=== PATIENT | female | born 1970 | race American Indian/Alaskan Native ===

== ENCOUNTER 2017-07-26 22:06 | Emergency (ER) | payer MEDICAID ==
[2017-07-26 22:24] VITALS: BP 142/93
[2017-07-26] MEDS ORDERED: Ketorolac 30 MG/ML SDV IM ONE (22:50)
--- NOTE | 2017-07-26 22:58 | EDM.PDOC ---
ED HPI GENERAL MEDICAL PROBLEM - General Chief Complaint: Lower Extremity Injury/Pain Stated Complaint: L GROIN PAIN Time Seen by Provider: 07/26/17 22:35 Source of Information: Reports: Patient History Limitations: Reports: No Limitations - History of Present Illness INITIAL COMMENTS - FREE TEXT/NARRATIVE: 47 yo female visiting from [place] thinks she injured her L groin during a recent PT appt in [place]. Has not talked to her provider about this. Has tried acetaminophen for it without relief. Is not missing work, is unemployed. Staying with family locally for a couple days. 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: Acetaminophen Left Groin Pain Score (Numeric/FACES): 10 - Related Data Allergies Allergy/AdvReac Type Severity Reaction Status Date / Time ranitidine [From Zantac] Allergy Hives Verified 07/02/16 17:58 Home Meds: Home Meds Aspirin/Calcium Carbonate/Mag [Aspirin Buffered 325 mg Tab] 1 tab PO DAILY 07/02 [History] Chlorzoxazone 1 tab PO DAILY 07/02/16 [History] Clopidogrel [Plavix] 1 tab PO DAILY 07/02/16 [History] Cyclobenzaprine [Flexeril] 5 - 10 mg PO BEDTIME 07/02/16 [History] DULoxetine [Cymbalta] 1 tab PO BEDTIME 07/02/16 [History] DULoxetine [Cymbalta] 2 tab PO DAILY 07/02/16 [History] Ferrous Gluconate 1 tab PO TID 07/02/16 [History] Levothyroxine 1 tab PO DAILY 07/02/16 [History] Mirtazapine 7.5 mg PO BEDTIME 07/02/16 [History] Naproxen 1 tab PO BID 07/02/16 [History] Oxybutynin 1 tab PO TID 07/02/16 [History] Pantoprazole [ProTONIX] 1 tab PO DAILY 07/02/16 [History] atorvaSTATin [Lipitor] 1 tab PO DAILY 07/02/16 [History] buPROPion [Wellbutrin] 1 tab PO BID 07/02/16 [History] metFORMIN [Glucophage] 1 tab PO DAILY 07/02/16 [History] risperiDONE 0.5 tab PO DAILY 07/02/16 [History] Meloxicam [Mobic] 7.5 mg PO BID #14 tablet 07/26/17 [Rx] Past Medical History HEENT History: Reports: Impaired Vision Cardiovascular History: Reports: High Cholesterol, Hypertension Respiratory History: Reports: COPD Gastrointestinal History: Reports: GERD Genitourinary History: Reports: Urinary Incontinence Musculoskeletal History: Reports: Back Pain, Chronic Neurological History: Reports: Seizure Psychiatric History: Reports: Anxiety, Depression, Panic Attack, PTSD Endocrine/Metabolic History: Reports: Hypothyroidism Hematologic History: Reports: Anemia Dermatologic History: Reports: Eczema - Past Surgical History Female Surgical History: Reports: Tubal Ligation Endocrine Surgical History: Reports: Thyroidectomy Neurological Surgical History: Reports: Other (See Below) Social & Family History - Tobacco Use Smoking Status *Q: Current Every Day Smoker Years of Tobacco use: 30 Packs/Tins Daily: 0.5 - Caffeine Use Caffeine Use: Reports: Coffee, Soda - Recreational Drug Use Recreational Drug Use: Yes Recreational Drug Type: Reports: Marijuana/Hashish Review of Systems - Review of Systems Review Of Systems: See Below Constitutional: Reports: No Symptoms Respiratory: Reports: No Symptoms Cardiovascular: Reports: No Symptoms GI/Abdominal: Reports: No Symptoms Genitourinary: Reports: No Symptoms Musculoskeletal: Reports: Joint Pain (L anterior hip region tender with palpation.) Skin: Reports: No Symptoms Neurological: Reports: No Symptoms ED EXAM, GENERAL - Physical Exam Exam: See Below Exam Limited By: No Limitations General Appearance: Alert, WD/WN, No Apparent Distress Eye Exam: Bilateral Eye: Normal Inspection Ears: Normal External Exam, Normal Canal Ear Exam: Bilateral Ear: Auricle Normal, Canal Normal Nose: Normal Inspection Throat/Mouth: Normal Inspection, Normal Lips, Normal Oropharynx, Normal Voice, No Airway Compromise Head: Atraumatic, Normocephalic Neck: Normal Inspection Respiratory/Chest: No Respiratory Distress, Lungs Clear, Normal Breath Sounds Cardiovascular: Regular Rate, Rhythm, No Edema GI/Abdominal: Normal Bowel Sounds, Soft, Non-Tender, No Distention Back Exam: Normal Inspection. No: CVA Tenderness (R), CVA Tenderness (L) Extremities: Normal Inspection, Leg Pain (L anterior groin area tender, increased pain with active hip movement, not passive. No palpable hernias. ) Neurological: Alert, Oriented, CN II-XII Intact, Normal Cognition Psychiatric: Normal Affect, Normal Mood Skin Exam: Warm, Dry, Intact, Normal Color, No Rash Course - Vital Signs Last Recorded V/S: Last Vital Signs Temp 36.6 C 07/26/17 22:22 Pulse 93 07/26/17 22:22 Resp 14 07/26/17 22:22 BP 142/93 H 07/26/17 22:22 Pulse Ox 95 07/26/17 22:22 - Orders/Labs/Meds Meds: Medications Discontinued Medications Generic Name Dose Route Start Last Admin Trade Name Luis PRN Reason Stop Dose Admin Ketorolac Tromethamine 30 mg 07/26/17 22:50 Toradol IM 07/26/17 22:51 ONETIME ONE Departure - Departure Time of Disposition: 22:58 Disposition: Home, Self-Care 01 Condition: Good Clinical Impression: Strain of groin Qualifiers: Encounter type: initial encounter Laterality: left Qualified Code(s): S76.212A - Strain of adductor muscle, fascia and tendon of left thigh, initial encounter - Discharge Information Prescriptions: Meloxicam [Mobic] 7.5 mg PO BID #14 tablet Referrals: PCP,None [Primary Care Provider] - Forms: ED Department Discharge Additional Instructions: Take Mobic as directed for your pain relief. You may add acetaminophen for added relief. Recheck with your doctor and/or physical therapy if your groin pain persists.
== END 2017-07-26 23:21 | disposition home or self-care (01) ==
LOC: JP.ED 22:06
DX: S76.212A Strain of adductor muscle, fascia and tendon of left thigh, initial encounter (principal); I10 Essential (primary) hypertension; E78.00 Pure hypercholesterolemia, unspecified; J44.9 Chronic obstructive pulmonary disease, unspecified; K21.9 Gastro-esophageal reflux disease without esophagitis; F32.9 Major depressive disorder, single episode, unspecified; E03.9 Hypothyroidism, unspecified; F17.210 Nicotine dependence, cigarettes, uncomplicated; Z79.82 Long term (current) use of aspirin; Z79.02 Long term (current) use of antithrombotics/antiplatelets; Z79.84 Long term (current) use of oral hypoglycemic drugs; Z79.899 Other long term (current) drug therapy; Z88.8 Allergy status to other drugs, medicaments and biological substances; X58.XXXA Exposure to other specified factors, initial encounter
CPT/HCPCS: 96372; 99283; J1885